=== PATIENT | male | born 1940 | race American Indian/Alaskan Native ===

== ENCOUNTER 2016-05-29 14:52 | Outpatient (CLI) | payer MEDICARE ==
--- NOTE | 2016-06-01 07:45 | Vascular Lab Report ---
LOWER EXTREMITY VENOUS DUPLEX: REASON FOR EXAM: Bilateral lower extremity swelling. COMMENTS ON THE RIGHT: All veins visualized are freely compressible without evidence of internal echogenicity. Flow is spontaneous and phasic throughout. COMMENTS ON THE LEFT: Deep venous thrombosis is noted in the left femoral vein. The remaining veins visualized are freely compressible without evidence of internal echogenicity. Spontaneous and phasic flow is present proximally. IMPRESSION: Deep venous thrombosis in the left lower extremity
== END 2016-05-29 14:53 | disposition home or self-care (01) ==
LOC: VAS 14:52
PROVIDERS: ATTEND Internal Medicine Hematology
DX: C70.9 Malignant neoplasm of meninges, unspecified (principal); I82.401 Acute embolism and thrombosis of unspecified deep veins of right lower extremity; R97.20 Elevated prostate specific antigen [PSA]; M79.89 Other specified soft tissue disorders
CPT/HCPCS: 93970

== ENCOUNTER 2016-09-10 09:07 | Outpatient (CLI) | payer MEDICARE ==
[2016-09-10 10:15] LABS: Blood Urea Nitrogen 21 mg/dL (9-20)
[2016-09-10] MEDS ORDERED: NACL ONE (12:03)
--- NOTE | 2016-09-10 15:37 | Cat Scan Report ---
CT CHEST WITH CONTRAST: HISTORY: Mass, T12 lesion, prostate cancer. TECHNIQUE: Helical CT following IV contrast. Sagittal and coronal reformatted images. FINDINGS: Compared to 11/29/15. Other than minor subpleural scarring at the left lung base, the lungs are clear. No evidence for lung mass, infiltrate, pleural effusion or pneumothorax. Heart size is normal. No pericardial effusion. The aorta is ectatic but widely patent. The thyroid gland and tracheobronchial tree are within normal limits. No thoracic adenopathy is appreciated. The bony structures are mildly demineralized. There is moderate multilevel degenerative change but no fracture or suspicious bony lesion. IMPRESSION: No evidence for an acute process or metastatic disease to the chest. No T12 lesion is identified.
--- NOTE | 2016-09-10 15:38 | Nuclear Medicine Report ---
BONE SCAN: History: A PSA, T12 lesion, prostate cancer Correlation is made with the CT chest, abdomen and pelvis performed the same day. No bony lesions are identified on CT. Compared to bone scan dated 11/25/15. After injection of isotope, gamma camera imaging of the bony system was done. There is a normal uptake of isotope throughout the bony structures without areas of significantly increased or decreased uptake. Normal uptake in the urinary system is seen. IMPRESSION: Negative bone scan. No T12 lesion detected.
--- NOTE | 2016-09-10 15:48 | Cat Scan Report ---
CT SCAN OF THE ABDOMEN AND PELVIS WITH CONTRAST: HISTORY: Abdominal pain, elevated PSA, prostate cancer. TECHNIQUE: Helical CT in 1.25mm intervals following IV contrast. Sagittal and coronal reconstructions. FINDINGS: Compared to 11/29/15. Numerous liver cysts are again identified. No suspicious liver mass. The spleen has been surgically removed or is very small in size. The biliary system, pancreas and adrenal glands are unremarkable. A few scattered simple renal cysts are unchanged, otherwise, the kidneys are within normal limits. The bowel loops appear normal caliber and wall thickness. No obvious mass or focal inflammation. Normal appendix. There is marked enlargement of the prostate gland which measures 7.2 x 7.5 cm in axial plane. The bladder is within normal limits. There is no evidence for pelvic adenopathy. No suspicious bony lesion is identified. Advanced degenerative changes and mild osteopenia are noted. IMPRESSION: Marked enlargement of the prostate gland. No evidence for metastatic disease. No adenopathy, solid organ lesion or bony lesion is appreciated. Liver cysts, unchanged. Renal cysts, unchanged. No overwhelming change since 11/29/15.
== END 2016-09-10 09:08 | disposition home or self-care (01) ==
LOC: NM 09:07
PROVIDERS: ATTEND Internal Medicine Hematology
DX: C70.9 Malignant neoplasm of meninges, unspecified (principal); I82.4Y1 Acute embolism and thrombosis of unspecified deep veins of right proximal lower extremity; R97.20 Elevated prostate specific antigen [PSA]; K76.89 Other specified diseases of liver; N28.1 Cyst of kidney, acquired; N40.0 Benign prostatic hyperplasia without lower urinary tract symptoms; M85.80 Other specified disorders of bone density and structure, unspecified site; M47.819 Spondylosis without myelopathy or radiculopathy, site unspecified; Z85.46 Personal history of malignant neoplasm of prostate; Z90.49 Acquired absence of other specified parts of digestive tract
CPT/HCPCS: 36415; 71260; 74177; 78306; 82565; 84520; A9503; Q9967

== ENCOUNTER 2016-10-14 12:21 | Outpatient (CLI) | payer MEDICARE ==
--- NOTE | 2016-10-16 14:46 | Vascular Lab Report ---
LOWER EXTREMITY VENOUS DUPLEX: REASON FOR EXAM: Pain and swelling of the lower extremities. COMMENTS ON THE RIGHT: Chronic nonocclusive thrombus is noted in the femoral and common femoral veins. The remaining veins visualized are freely compressible without evidence of internal echogenicity. Spontaneous and phasic flow is present proximally. COMMENTS ON THE LEFT: Chronic nonocclusive thrombus is noted in the popliteal, femoral, common femoral veins. The remaining veins visualized are freely compressible without evidence of internal echogenicity. Spontaneous and phasic flow is present proximally. IMPRESSION: Bilateral chronic deep venous thrombosis
== END 2016-10-14 12:22 | disposition home or self-care (01) ==
LOC: VAS 12:21
PROVIDERS: ATTEND Internal Medicine Hematology
DX: I82.4Y1 Acute embolism and thrombosis of unspecified deep veins of right proximal lower extremity (principal); C70.9 Malignant neoplasm of meninges, unspecified; R97.20 Elevated prostate specific antigen [PSA]; I10 Essential (primary) hypertension
CPT/HCPCS: 93970

== ENCOUNTER 2017-08-12 10:43 | Day surgery (SDC) | payer MEDICARE ==
[~2017-08-12 10:43] MED LIST: TETRACAINE 0.5% OD PRN
[2017-08-12] MEDS: MYDRIACYL OD SCH ×3 (12:55→13:05)
[2017-08-12] MEDS: AK-Dilate OD SCH ×3 (12:55→13:05)
[2017-08-12] MEDS: VIGAMOX OD SCH ×3 (12:55→13:05)
[2017-08-12] MEDS ORDERED: NARCAN 0.4 MG/1 ML IV PRN (13:19)
[2017-08-12] MEDS ORDERED: ZOFRAN IV PRN (13:19)
[2017-08-12] MEDS ORDERED: DILAUDID IV PRN (13:19)
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
--- NOTE | 2017-08-12 13:31 | Anesthesia Day of Surgery ---
Anesthesia Day of Surgery - Day of Surgery Patient Examined: Yes Patient H&P Reviewed: Yes Patient is NPO: Yes
[2017-08-12] MEDS ORDERED: VERSED ONE (14:32)
[2017-08-12] MEDS ORDERED: DIAMOX PO ONE (14:57)
--- NOTE | 2017-08-12 14:58 | Operative Report ---
Operative Report Operative Report: PATIENT'S NAME: DATE OF : DATE OF SURGERY: 08/12/2017 PREOPERATIVE DIAGNOSIS: Cataract right eye POSTOPERATIVE DIAGNOSIS: Same OPERATIVE PROCEDURE: Phacoemulsification with intraocular lens implantation, right eye SURGEON: Day Gutierres M.D. [employer] SURGEON: Meir Lens: A060 22.0 D ANESTHESIA: Monitored anesthesia care in combination with topical and intracameral anesthesia because of the established specific risk of reflux, arrhythmias, or anxiety attacks associated with ocular manipulation, as well as the difficulty of the center consultant to manage such potentially catastrophic events while simultaneously attempting to complete the surgical procedure and was deemed necessary for the patient's safety to have an Religion Department Chair present during the procedure whenever possible. An Religion Department Chair was utilized to regulate the intravenous sedation of the patient so the patient was cooperative yet not asleep in order for the patient to successfully maintain fixation of the eye on the operating light of the microscope. COMPLICATIONS: No surgical complications No blood loss. ALLERGIES: N known drug allergies PROGNOSIS: Excellent INDICATIONS FOR SURGERY: The patient is undergoing surgery in the hopes of eliminating or improving these visual difficulties. PROCEDURE: After arriving at the surgery center, the patient was given topical anesthetic and dilating drops, as noted in the record. The patient was then taken into the operating room and given more anesthetic drops. The eyelids , lashes, and lid margins were scrubbed with Betadine solution, and the patient was draped. The Nurse Religion Department Chair administered IV sedation and monitored the patient during the procedure. The eye was then fixated with a 0.12, and a stab incision was made in the peripheral clear cornea into the anterior chamber. This was made on my left side. Viscoelastic was next used to fill the anterior chamber. The eye was once again fixated with the 0.12 forceps and a keratome was used make an incision in clear cornea peripherally on my right hand side temporally. The capsule forceps were used to open the central anterior capsule and then make a continuous round capsulotomy. Hydrodissection was carried out utilizing a cannula and balanced salt solution to delineate the cortical material from the capsule and the nucleus from the cortical material. The phaco tip was introduced into the eye and used to remove the anterior cortical material in the area of the capsulotomy. Then the phaco tip was buried into the nucleus, and a chopping instrument was introduced into the eye and used to provide countertraction in the nucleus between this instrument and the phaco tip fracturing the nucleus. This procedure was repeated multiple times, providing multiple small segments of the lens, and then the phaco tip was used to remove each of these segments. An I/A tip was then used to remove the remaining cortex. The anterior chamber was refilled with viscoelastic. An one-piece, acrylic intraocular lens was then placed into an inserting cartridge. The tip of the inserting cartridge was introduced into the keratome incision and into the anterior chamber. The implant was gently advanced through the cartridge and into the eye, where it unfolded, and both haptics were placed in the capsular bag, where it centered nicely and appeared to be well fixated. After placement of the intraocular lens, the I~and~A handpiece was placed back into the eye and used to remove the viscoelastic, including viscoelastic that was behind the optic of the intraocular lens. The anterior chamber was then filled with balanced salt solution, and hydration of the wound was used to cause swelling of the wound and more appropriate watertight closure. When the wound was found to be firm, the patient was asked to comment on how bright the light was. If there was no light perception at all or if the light was substantially dimmer than during the rest of the surgery, the amount of fluid in the eye was decompressed to lower the intraocular pressure until the patient could see the bright light again. This was done to avoid any damage or decreased blood flow to the optic nerve. MEDICATIONS APPLIED AT END OF SURGERY: One drop of Pred Forte and Vigamox The patient was given a shield to wear at night and was instructed not to rub or push on the eye. DISCHARGE SUMMARY: The patient was released in stable condition. The patient and those with the patient were given a written sheet of postoperative instructions and counseling on any abnormal laboratory studies. The patient is to see us tomorrow for follow-up in the office and is to call immediately for any difficulties. Day Gutierres M.D. Date
--- NOTE | 2017-08-12 14:59 | Short Stay Summary ---
Short Stay Documentation Date of service: 08/12/17 - History H&P: obtained from office - Allergies and Medications Current Medications: Allergies No Known Allergies Allergy (Verified 08/05/17 16:05) Home Medications Medication Instructions Recorded Confirmed Last Taken Type NIFEdipine XL [Procardia Xl] 90 mg PO QDAY 11/20/14 08/05/17 08/11/17 History Carvedilol [Coreg] 6.25 mg PO BID 08/05/17 08/05/17 08/11/17 History Latanoprost 0.005% 1 drop OP BID 08/05/17 08/05/17 08/11/17 History Memantine [Namenda] 10 mg PO BID 08/05/17 08/05/17 08/11/17 History Nepafenac [Ilevro] 1.7 ml OP BID 08/05/17 08/05/17 08/11/17 History Rivaroxaban [Xarelto] 20 mg PO QDAY 08/05/17 08/12/17 08/09/17 History Active Medications Hydromorphone HCl (Dilaudid) 0.25 mg IV Q10MIN PRN PRN Reason: Pain, Moderate (4-6) Moxifloxacin HCl (Vigamox) 1 drops OD Q5MIN [facility] Stop: 08/14/17 06:01 Last Admin: 08/12/17 13:05 Dose: 1 drops Naloxone HCl (Narcan 0.4 Mg/1 Ml) 0.1 mg IV Q2MIN PRN PRN Reason: Res Rate </= 8 or 02 SAT < 92% Ondansetron HCl (Zofran) 4 mg IV ONCE PRN PRN Reason: Nausea And Vomiting Phenylephrine HCl (Ak-Dilate) 1 drops OD Q5MIN FARTUN Stop: 08/14/17 06:01 Last Admin: 08/12/17 13:05 Dose: 1 drops Prednisolone Acetate (Pred Forte 1%) 1 drops OD QID FARTUN Tetracaine HCl (Tetracaine 0.5%) 1 drops OD Q5M PRN PRN Reason: Analgesia Last Admin: 08/12/17 12:55 Dose: 1 drops Tropicamide (Mydriacyl) 1 drops OD Q5MIN FARTUN Stop: 08/14/17 06:01 Last Admin: 08/12/17 13:05 Dose: 1 drops - Brief post op/procedure progress note Date of procedure: 08/12/17 Pre-op diagnosis: right cataract Post-op diagnosis: same Procedure: Phacoemulsification with intraocular lens insertion right eye Anesthesia: MAC, local Surgeon: TRACEY PHAM Estimated blood loss: none Pathology: none Condition: stable - Disposition Condition at discharge: Good Disposition: [id number]-01 TO HOME OR SELFCARE - Discharge Diagnoses (1) Cataract Status: Acute Qualifiers: Cataract type: age-related Age-related cataract type: nuclear Laterality : right Qualified Code(s): H25.11 - Age-related nuclear cataract, right eye Short Stay Discharge Plan Follow up with: JOSE RAMON VILLELA MD [Primary Care Provider] - 7 Days
[2017-08-12] MEDS ORDERED: PRED FORTE 1% OD SCH (15:00)
--- NOTE | 2017-08-12 15:40 | Post Anesthesia Evaluation ---
- Post Anesthesia Evaluation Patient Participated: Yes Airway Patent: Yes Stable Respiratory Function: Yes Nausea/Vomiting: No Temp > 96.8F: Yes Pain Manageable: Yes Adequeate Hydration: Yes Anesthesia Complications: No
[2017-08-12 18:22] VITALS: BP 165/84
== END 2017-08-12 15:44 | disposition home or self-care (01) ==
LOC: OR 10:43
DX: H26.9 Unspecified cataract (principal); I10 Essential (primary) hypertension; G30.9 Alzheimer's disease, unspecified; F02.80 Dementia in other diseases classified elsewhere, unspecified severity, without behavioral disturbance, psychotic disturbance, mood disturbance, and anxiety; Z85.9 Personal history of malignant neoplasm, unspecified
CPT/HCPCS: 66984; J2250; V2632